=== PATIENT | male | born 1945 | race Caucasian/White ===

== ENCOUNTER → 2024-02-21 07:40 | Outpatient (REF) | payer OTHER, SELFPAY | LOC: RAD 07:40 | PROVIDERS: ATTENDING PHYSICIAN Internal Medicine Rheumatology; FAMILY PHYSICIAN Family Medicine | DX: M81.0 Age-related osteoporosis without current pathological fracture (principal) | CPT/HCPCS: 77080 ==

== ENCOUNTER 2025-01-15 20:56 | Emergency (ER) | payer OTHER, SELFPAY ==
[2025-01-15 20:59] VITALS: BP 140/78
[2025-01-15 21:22] LABS: Hematocrit 42.6 % (39.0-52.0); Hemoglobin 14.5 g/dL (13.0-18.0); Mean Corp Hgb Conc. 34.0 g/dL (33.0-37.0); Mean Corpuscular Volume 97.9 fL (80.0-94.0); Nucleated Red Blood Cells % 0 % (-); Platelet Count 150 10^3/uL (130-400); Red Cell Dist. Width 13.5 % (11.5-14.5)
[2025-01-15 21:45] LABS: ALT (SGPT) 20 U/L (0-50); AST (SGOT) 25 U/L (17-59); Albumin 4.3 g/dl (3.5-5.0); Alkaline Phosphatase 80 U/L (38-126); Blood Urea Nitrogen 19 mg/dl (9-20); Calcium 9.2 mg/dl (8.4-10.2); Carbon Dioxide 26 mmol/L (22-30); Chloride 107 mmol/L (98-107); Glucose 116 mg/dl (70-99); Potassium 4.1 mmol/L (3.5-5.1); Sodium 139 mmol/L (135-145); Total Protein 6.6 g/dl (6.3-8.2); eGFR > 60.00
[2025-01-15 21:46] LABS: Troponin I < 0.012 ng/ml
[2025-01-16 00:51] VITALS: BP 116/61; BMI 28.7
[2025-01-16 01:33] LABS: Troponin I < 0.012 ng/ml
[2025-01-16 02:18] VITALS: BP 121/66
--- NOTE | 2025-01-16 03:43 | ED.GENMED ---
History of Present Illness
General
Chief Complaint: Cardiac Symptoms
Source: patient
Exam Limitations: none
Time Seen by Provider: 01/16/25 00:18
Nursing documentation reviewed up to this point in time: agreed with
History of Present Illness
History of Present Illness:
79-year-old male past medical history of hyperlipidemia, GERD presenting to the emergency department today with concerns of chest pain with radiation to left arm some lightheadedness as well. Denies any ongoing symptoms did take an aspirin prior to
arrival with improvement. Denies any nausea vomiting diaphoresis no abdominal pain.
Past History
Past History
ED Past Medical History: GERD and Hypercholesterolemia; Negative CAD
ED Past Surgical History: Orthopedic (Knee arthroscopy )
Social History
Tobacco: Non-smoker
Alcohol: Daily
Personal:
Living: with family
Employment: Retired
Family History
Family History: Other (Brother with history of CVA)
Review of Systems
Review of Systems
Allergies reviewed?: Yes
All Other Systems: ROS reviewed and negative except as documented in HPI and ROS
Phy Exam
Physical Exam
Physical Exam:
GENERAL: Alert , in no apparent distress
EYE: pupils equal and reactive
NECK: Supple, no significant adenopathy.
ENT: o/p clr, mmm.
CARDIAC: Regular rate and rhythm .
LUNGS: Clear breath sounds bilaterally, no acute respiratory distress, no wheezes/rales/rhonchi
ABDOMEN: Soft, without focal tenderness, no r/g, no cvat
NEUROLOGICAL: Alert and oriented, no focal neuro deficits
SKIN: Warm and dry, skin intact.
MUSCULOSKELETAL: No edema, well perfused.
PSYCH: Normal and appropriate interaction.
Course
Orders/Labs/Results
Orders:
Orders
01/15/25 20:59
EKG [Electrocardiogram (*1)] Urgent
Reason for Study: Chest Pain
EKG- Treatment ONCE
01/15/25 21:12
Complete Blood Count/With Diff Urgent
Comprehensive Metabolic Panel Urgent
Troponin I Urgent
01/16/25 00:32
CT Head & Neck Angio W/wo IV Urgent
Comment:
Reason For Exam: left neck pain, confusion
01/16/25 00:34
Electrocardiogram (*1) Urgent
Reason for Study: Chest Pain
EKG- Treatment ONCE
01/16/25 00:50
Troponin I Urgent
Abnormal Lab Results
01/15/25
21:12
RBC 4.35 L 10^6/uL
(4.70-6.10)
MCV 97.9 H fL
(80.0-94.0)
MCH 33.3 H pg
(27.0-31.0)
MPV 10.9 H fL
(7.4-10.4)
Glucose 116 H mg/dl
(70-99)
01/15/25 21:12
01/15/25 21:12
Vital Signs
Initial and Last Documented VS:
Initial Vital Signs
Temp Pulse Resp BP Pulse Ox
97.9 F 66 18 140/78 98
01/15/25 20:59 01/15/25 20:59 01/15/25 20:59 01/15/25 20:59 01/15/25 20:59
Last Documented Vital Signs
Temp Pulse Resp BP Pulse Ox
98.0 F 62 18 121/66 95
01/16/25 00:51 01/16/25 02:18 01/16/25 02:18 01/16/25 02:18 01/16/25 02:18
MDM/Problems Addressed
MDM/Problems Addressed:
79-year-old male presenting to the emergency department today with concerns of left-sided shoulder arm and chest discomfort with associated lightheadedness. Also seemed to be confused when this happened a few hours ago. Symptoms now resolved.
Patient no distress. Vital signs normal on arrival labs unremarkable. Troponin negative EKG normal concerning did have some pain in the neck CT scan was obtained that did not show any emergent process. No ongoing discomfort into the shoulder. 2
EKGs normal 2 troponins negative advised for close outpatient follow-up with cardiology. Return precautions given.
*Pulse Oximetry
SaO2: 95
Nasal Cannula flow liters per minute: 99
Oxygen Mode of Delivery: Room air
Patient hypoxic: no (95)
*Critical Care Note
Total Time (30-74mins, 75-104mins- exclusive of procedures): Not Applicable
ED Attending Note
-
Portions of this chart may have been created with voice recognition software.� Occasional wrong word or��sound alike� substitutions may have occurred due to the inherent limitations of voice recognition software.
Discharge Plan
Departure
Patient Disposition: Home (Routine Discharge)
Date of Disposition: 01/16/25
Time of Disposition: 03:45
Patient with high blood pressure during this ER visit?: No
Condition: Good
Covid-19: Not Applicable
Discharge Problem:
Chest pain
Instructions: Chest Pain (DC), Chest Pain CBC Follow Up
Prescriptions:
No Action
atorvastatin 10 MG tablet
20 mg PO QPM
Vitamin D
50,000 unit PO WEEKLY
Viagra
1 tab PO PRN PRN (Reason: .as directed )
pantoprazole 40 MG tablet,delayed release (DR/EC)
40 mg PO DAILY Qty: 30 0RF
Referrals:
Otilio Burkett MD [Family Provider, Family Practice]
Activity Restrictions/Additional Instructions:
You came to the emergency department today with concerns of arm and chest discomfort. Here he had a reassuring assessment. Please feel closely as an outpatient with cardiology. Return for any worsening, new or concerning symptoms.
Interventions
Interventions:
*Risk Screen - Suicide Last Done: 01/15/25 21:01
*General Assessment Last Done: 01/15/25 20:59
*Neglect/Abuse Screening Last Done: 01/15/25 21:01
*ED- Fall Risk Assessment Last Done: 01/15/25 20:59
*ED COVID-19 Vaccine History Last Done: 01/15/25 20:59
*ED Influenza Vaccine History Last Done: 01/15/25 20:59
ED- Pulmonary Assessment Last Done: 01/16/25 00:53
ED- Cardiac Assessment Last Done: 01/16/25 00:53
Discharge Date and Time
Print Language: SYRIAC
[2025-01-16 04:00] VITALS: BP 123/78
== END 2025-01-16 04:04 | disposition home or self-care (01) ==
LOC: EMR 20:56
PROVIDERS: Emergency Medicine; Physician Assistant; EMERGENCY PHYSICIAN Emergency Medicine; FAMILY PHYSICIAN Family Medicine; REFERRING PHYSICIAN Internal Medicine
DX: R07.89 Other chest pain (principal); R42 Dizziness and giddiness; M54.2 Cervicalgia; E78.00 Pure hypercholesterolemia, unspecified; K21.9 Gastro-esophageal reflux disease without esophagitis; Z82.3 Family history of stroke
CPT/HCPCS: 99284; 70496; 70498; 80053; 84484; 85025; 93005; Q9967

== ENCOUNTER 2025-02-04 06:24 | Day surgery (SDC) | payer OTHER, SELFPAY | END 2025-02-04 11:06 | disposition home or self-care (01) | LOC: GI 06:24 | PROVIDERS: ATTENDING PHYSICIAN Internal Medicine Gastroenterology | DX: Z12.11 Encounter for screening for malignant neoplasm of colon (principal); D12.3 Benign neoplasm of transverse colon; K57.30 Diverticulosis of large intestine without perforation or abscess without bleeding; K64.8 Other hemorrhoids; Z86.0100 Personal history of colon polyps, unspecified | CPT/HCPCS: 45380; 88305 ==